=== PATIENT | female | born 1985 | race American Indian/Alaskan Native ===

== ENCOUNTER 2018-02-04 15:29 | Emergency (ER) | payer MEDICAID ==
[2018-02-04] MEDS ORDERED: NACL 0.9% 1000 ML 1,000 ML IV ONE ×2 (16:22→19:35)
--- NOTE | 2018-02-04 16:27 | Emergency Department Report ---
ED Headache HPI - General Chief Complaint: Headache Stated Complaint: HEADACHE,VOMITING,BACK PAIN Time Seen by Provider: 02/04/18 16:04 Source: patient Exam Limitations: no limitations - History of Present Illness Initial Comments: Ms Nugent is a 32 year-old woman without PMH who presents from home with headache. Was at home yesterday early afternoon and the ceiling collapsed onto her head. No LOC. has been having gradual onset of headache that is now severe. Worse when laying down or bending over. Also with neck pain. Nausea, no vomiting. Blurred vision in left eye. Think she has tingling in her R arm, R leg and right side of face. No home meds. Had a fever 101F at home today, took 1000mg tylenol. No cough, no chest pain, no pain with urination, no vaginal discharge. No sore throat, no runny nose. LMP 01/16. Had BTL. Timing/Duration: 24 hours Quality: severe Head Injury Location: frontal, occipital Recent Head Trauma: head trauma > 24 hrs ago Associated Symptoms: nausea/vomiting, vision changes Allergies/Adverse Reactions: Allergies morphine Allergy (Verified 02/04/18 15:37) Hives Home Medications: Ambulatory Orders HYDROcodone/APAP 5-325 [[place] 5/325] 1 each PO Q6HR PRN #15 tablet 12/28/14 Naproxen [Naprosyn] 500 mg PO BID #30 tablet 01/02/15 Oxycodone HCl/Acetaminophen [Percocet 10-325 mg] 1 each PO Q6HR PRN #20 tablet 01/02/15 Ibuprofen [Motrin] 600 mg PO Q8H PRN #60 tablet 02/02/15 traMADol [Ultram 50 MG tab] 50 mg PO Q6HR PRN #14 tablet 04/20/15 Amoxicillin [Trimox CAP] 500 mg PO Q8H #21 capsule 07/11/15 Ibuprofen [Motrin 800 MG tab] 800 mg PO Q8HR PRN #30 tablet 07/11/15 ED Review of Systems ROS: Stated complaint: HEADACHE,VOMITING,BACK PAIN Other details as noted in HPI Comment: All other systems reviewed and negative ED Past Medical Hx - Past Medical History Previous Medical History?: No Additional medical history: ovarian cysts - Surgical History Past Surgical History?: Yes Additional Surgical History: laparoscopy 04/08/15 - Social History Smoking Status: Never Smoker Substance Use Type: None - Medications Home Medications: Home Medications Medication Instructions Recorded Confirmed Last Taken Type HYDROcodone/APAP 5-325 [[place] 1 each PO Q6HR PRN #15 tablet 12/28/14 01/01/15 Unknown Rx 5/325] Naproxen [Naprosyn] 500 mg PO BID #30 tablet 01/02/15 Unknown Rx Oxycodone HCl/Acetaminophen 1 each PO Q6HR PRN #20 tablet 01/02/15 Unknown Rx [Percocet 10-325 mg] Ibuprofen [Motrin] 600 mg PO Q8H PRN #60 tablet 02/02/15 Unknown Rx traMADol [Ultram 50 MG tab] 50 mg PO Q6HR PRN #14 tablet 04/20/15 Unknown Rx Amoxicillin [Trimox CAP] 500 mg PO Q8H #21 capsule 07/11/15 Unknown Rx Ibuprofen [Motrin 800 MG tab] 800 mg PO Q8HR PRN #30 tablet 07/11/15 Unknown Rx ED Physical Exam - General Limitations: No Limitations General appearance: alert, in no apparent distress - Head Head exam: Present: atraumatic, normocephalic - Eye Eye exam: Present: normal appearance, PERRL. Absent: conjunctival injection, periorbital swelling, periorbital tenderness Pupils: Present: normal accommodation - ENT ENT exam: Present: normal exam, normal orophraynx, mucous membranes moist - Neck Neck exam: Present: normal inspection, tenderness, full ROM, other (midline C5/ C6 TTP. no bruising, no step-off, no swelling). Absent: meningismus, lymphadenopathy, thyromegaly - Respiratory Respiratory exam: Present: normal lung sounds bilaterally. Absent: respiratory distress, chest wall tenderness, accessory muscle use - Cardiovascular Cardiovascular Exam: Present: normal rhythm, tachycardia. Absent: systolic murmur, diastolic murmur, rubs, gallop - GI/Abdominal GI/Abdominal exam: Present: soft. Absent: distended, tenderness - Rectal Rectal exam: Present: deferred - Extremities Exam Extremities exam: Present: normal inspection, full ROM. Absent: tenderness - Back Exam Back exam: Present: normal inspection. Absent: tenderness, CVA tenderness (R), CVA tenderness (L), paraspinal tenderness, vertebral tenderness - Neurological Exam Neurological exam: Present: alert, oriented X3, CN II-XII intact, motor sensory deficit - Psychiatric Psychiatric exam: Present: normal affect, normal mood - Skin Skin exam: Present: warm, dry, intact, normal color. Absent: rash ED Course Vital Signs 02/04/18 02/04/18 02/04/18 15:34 17:32 17:38 Temperature 98.4 F Pulse Rate 109 H 83 Respiratory 16 19 Rate Blood Pressure 124/82 Blood Pressure 110/76 [Right] O2 Sat by Pulse 99 100 Oximetry 02/04/18 02/04/18 02/04/18 18:17 18:49 19:28 Temperature 98.8 F Pulse Rate 88 Respiratory 16 16 Rate Blood Pressure Blood Pressure 95/55 [Right] O2 Sat by Pulse 100 Oximetry 02/04/18 02/04/18 02/04/18 19:30 19:46 20:01 Temperature Pulse Rate Respiratory 16 Rate Blood Pressure 94/61 102/71 Blood Pressure [Right] O2 Sat by Pulse 98 99 Oximetry 02/04/18 02/04/18 02/04/18 20:16 20:31 21:00 Temperature Pulse Rate Respiratory 16 16 Rate Blood Pressure 98/69 Blood Pressure [Right] O2 Sat by Pulse 100 Oximetry ED Medical Decision Making - Lab Data Result diagrams: 02/04/18 16:34 02/04/18 16:34 - Radiology Data Radiology results: report reviewed, image reviewed PROCEDURE: CT HEAD/BRAIN WO CON TECHNIQUE: Computerized tomography of the head was performed without contrast material. HISTORY: closed head injury COMPARISON : No prior studies are available for comparison. FINDINGS: There is streak artifact from metallic piercing. No gross evidence of intracranial mass, hemorrhage, acute territorial infarction, or hydrocephalus. The intracranial arteries are symmetric in density. No acute fracture is seen. Visualized paranasal sinuses and mastoids are aerated. IMPRESSION: No CT evidence of acute abnormality PROCEDURE: CT CERVICAL SPINE WO CON TECHNIQUE: Computerized tomography of the cervical spine was performed from the skull base to T1 without contrast material. HISTORY: cervical spinal injury COMPARISON: No prior studies are available for comparison. FINDINGS: There is no evidence of fracture or subluxation. No focal disc herniation or spinal stenosis is visualized. Posterior elements are intact. Disc spaces appear well maintained. Bone density appears normal. Upper lung connors appear clear. IMPRESSION: Negative exam. No fracture or other acute abnormality is identity. - Medical Decision Making Ms nugent is a 32 year-old woman who presents with headache, neck pain, nausea, subjective tingling after head injury yesterday. No LOC. gradual onset of pain. Worse when supine. Exam reveals her to be neuro intact, TTP occiput but no cephalohematoma. mild midline cervical spinal ttp, no bruise/swelling and has full ROM. Has been ambulatory for 24 hours, will not place in cervical collar. Suspect this is concussion vs ICH. Getting CT brain/c-spine. unclear cause for fever. Will eval with basic labs. CTs atraumatic. given BELTRAN cocktail with only mild relief in BELTRAN. Labs unremarkable , afebrile in ED. On exam, most tenderness is lateral neck near base of skull. Able to reproduce/worsen BELTRAN with palpable. Suspect this is headache due to neck strain/tension BELTRAN. Given 1tab eprcocet. Near full resolution. Suspect this is combination of all meds in BELTRAN cocktail. Givenr eassurance as to normal work-up. No longer with subjective blurred vision in L eye. Safe for dc to home with care instructions, return precautions. Critical care attestation.: If time is entered above; I have spent that time in minutes in the direct care of this critically ill patient, excluding procedure time. ED Disposition Clinical Impression: Headache Qualifiers: Headache type: unspecified Headache chronicity pattern: acute headache Intractability: not intractable Qualified Code(s): R51 - Headache Disposition: DC-01 TO HOME OR SELFCARE Is pt being admited?: No Condition: Stable Instructions: Tension Headache (ED), Cervical Spine Strain (ED) Referrals: PRIMARY CARE, [Primary Care Provider] - 3-5 Days
[2018-02-04] MEDS ORDERED: REGLAN IV ONE (16:44)
[2018-02-04] MEDS ORDERED: BENADRYL IV ONE (16:44)
[2018-02-04] MEDS ORDERED: DECADRON PO ONE (16:44)
[2018-02-04 16:56] LABS: Basophils % (Auto) 0.4 % (0.0-1.8); Eosinophils # (Auto) 0.1 K/mm3 (0.0-0.4); Eosinophils % (Auto) 1.7 % (0.0-4.3); Hematocrit 38.6 % (30.3-42.9); Hemoglobin 13.2 gm/dl (10.1-14.3); Lymphocytes # (Auto) 1.5 K/mm3 (1.2-5.4); Lymphocytes % (Auto) 31.7 % (13.4-35.0); Mean Corpuscular HGB Conc 34 % (30-34); Mean Corpuscular Hemoglobin 30 pg (28-32); Mean Corpuscular Volume 89 fl (79-97); Monocytes # (Auto) 0.5 K/mm3 (0.0-0.8); Monocytes % (Auto) 10.4 % (0.0-7.3); Platelet Count 223 K/mm3 (140-440); Red Blood Count 4.35 M/mm3 (3.65-5.03); Red Cell Distribution Width 13.3 % (13.2-15.2)
[2018-02-04 17:05] LABS: INR 0.9 (0.87-1.13)
[2018-02-04 17:08] LABS: Alanine Aminotransferase 30 units/L (7-56); Albumin 3.9 g/dL (3.9-5); BUN/Creatinine Ratio 15; Blood Urea Nitrogen 12 mg/dL (7-17); Calcium 9.4 mg/dL (8.4-10.2); Hemolysis Index 9
--- NOTE | 2018-02-04 17:49 | Cat Scan Report ---
FINAL REPORT PROCEDURE: CT HEAD/BRAIN WO CON TECHNIQUE: Computerized tomography of the head was performed without contrast material. HISTORY: closed head injury COMPARISON: No prior studies are available for comparison. FINDINGS: There is streak artifact from metallic piercing. No gross evidence of intracranial mass, hemorrhage, acute territorial infarction, or hydrocephalus. The intracranial arteries are symmetric in density. No acute fracture is seen. Visualized paranasal sinuses and mastoids are aerated. IMPRESSION: No CT evidence of acute abnormality
[2018-02-04] MEDS ORDERED: TORADOL IV ONE ×2 (18:01→19:36)
--- NOTE | 2018-02-04 18:16 | Cat Scan Report ---
FINAL REPORT PROCEDURE: CT CERVICAL SPINE WO CON TECHNIQUE: Computerized tomography of the cervical spine was performed from the skull base to T1 without contrast material. HISTORY: cervical spinal injury COMPARISON: No prior studies are available for comparison. FINDINGS: There is no evidence of fracture or subluxation. No focal disc herniation or spinal stenosis is visualized. Posterior elements are intact. Disc spaces appear well maintained. Bone density appears normal. Upper lung connors appear clear. IMPRESSION: Negative exam. No fracture or other acute abnormality is identity.
[2018-02-04 18:43] LABS: Bilirubin,Urine NEG (Negative); Blood,Urine SM (Negative); Color,Urine Yellow (Yellow); Hyaline Casts,Urine 1 /LPF; Mucus,Urine 1+ /HPF; Urobilinogen,Urine < 2.0 mg/dL (<2.0)
[2018-02-04 18:45] LABS: HCG Qualitative,Urine Negative (Negative)
[2018-02-04] MEDS ORDERED: PERCOCET 5/325 PO ONE (20:35)
[2018-02-04 21:08] VITALS: BP 98/69
== END 2018-02-04 21:19 | disposition home or self-care (01) ==
LOC: ED 15:29
DX: R51 Headache (principal); Z88.5 Allergy status to narcotic agent; X58.XXXA Exposure to other specified factors, initial encounter; Y93.89 Activity, other specified; Y99.8 Other external cause status; Y92.89 Other specified places as the place of occurrence of the external cause
CPT/HCPCS: 36415; 70450; 72125; 80053; 81001; 81025; 85025; 85610; 96361; 96374; 96375; 96376; 99284; J1200; J1885; J2765; J7030; J8540